=== PATIENT | female | born 2000 | race Caucasian/White ===

== ENCOUNTER 2020-06-24 01:10 | Emergency (ER) | payer MEDICAID ==
[~2020-06-24] VITALS: Ht 160 cm; Wt 106.8 kg
[2020-06-24 01:29] VITALS: Ht 160 cm; Wt 106.8 kg
[2020-06-24] MEDS ORDERED: ZANAFLEX4 MG PO (02:24)
[2020-06-24] MEDS ORDERED: VOLTAREN75 MG PO (02:24)
[2020-06-24 02:30] VITALS: BP 124/74
== END 2020-06-24 02:30 | disposition home or self-care (01) ==
LOC: D.ER 01:10
DX: M79.18 Myalgia, other site (principal); R07.89 Other chest pain; J45.909 Unspecified asthma, uncomplicated; Z72.0 Tobacco use